=== PATIENT | male | born 1995 | race Caucasian/White ===

== ENCOUNTER 2020-05-12 22:29 | Emergency (ER) | payer OTHER ==
[~2020-05-12] VITALS: Ht 188 cm; Wt 72.6 kg
[2020-05-12 22:30] VITALS: BP_SYST 126
--- NOTE | 2020-05-12 22:30 | NUR ---
Patient to ER bed 2 to gown for evaluation. Side rails up. Report given to CHARLY.
--- NOTE | 2020-05-12 22:35 | NUR ---
PT ALERT BUT INTOXICATED CURRENTLY. PT ARRIVES FROM [facility] ON A 5150 HOLD FOR DTS. PT MADE SUICIDAL STATEMENTS AND REQUIRES MEDICAL CLEARANCE.
--- NOTE | 2020-05-12 22:40 | NUR ---
ER at bedside examining patient.
--- NOTE | 2020-05-12 23:01 | NUR ---
Blood works sent to the lab
[2020-05-12 23:19] LABS: BASOPHILS # (AUTO) 0.1 K/uL (0.0-0.2); BASOPHILS % (AUTO) 1.3 % (0.0-2.0); EOSINOPHILS # (AUTO) 0.2 K/uL (0.0-0.4); EOSINOPHILS % (AUTO) 3.1 % (0.0-4.0); HEMATOCRIT 42.7 % (36-54); LYMPHOCYTES # (AUTO) 2.1 K/uL (1.0-5.5); MEAN CORPUSCULAR HEMOGLOBIN 24 pg (27-31); MEAN CORPUSCULAR HGB CONC 33 % (32-36); MEAN CORPUSCULAR VOLUME 74 fL (79.0-98.0); MONOCYTES # (AUTO) 0.6 K/uL (0.0-1.0); NEUTROPHILS # (AUTO) 3.9 K/uL (1.8-7.7); NEUTROPHILS % (AUTO) 56.6 % (40.0-70.0); PLATELET COUNT (AUTO) 493 K/uL (130-430); RED BLOOD CELL COUNT(AUTO) 5.78 MIL/uL (4.2-6.2); WHITE BLOOD COUNT (AUTO) 6.9 K/uL (4.8-10.8)
[2020-05-12 23:30] LABS: CALCIUM 8.8 mg/dL (8.4-11.0); CREATININE 1.04 mg/dL (0.55-1.30); POTASSIUM 3.4 mmol/L (3.5-5.1)
[2020-05-12 23:46] LABS: ALBUMIN 4.6 g/dL (3.4-4.8); TOTAL BILIRUBIN 0.3 mg/dL (0.0-1.0)
[2020-05-12 23:48] LABS: BILIRUBIN,URINE NEGATIVE (NEGATIVE); BLOOD, URINE NEGATIVE (NEGATIVE); CLARITY/URINE CLEAR (CLEAR); COLOR,URINE YELLOW (YELLOW); GLUCOSE,URINE NEGATIVE (NEGATIVE); KETONES,URINE NEGATIVE (NEGATIVE); LEUKOCYTE ESTERASE ,URINE NEGATIVE (NEGATIVE); NITRITE, URINE NEGATIVE (NEGATIVE); PROTEIN URINE NEGATIVE (NEGATIVE); UROBILINOGEN,URINE 0.2 (0.2-1.0)
--- NOTE | 2020-05-12 23:51 | NUR ---
[facility] facility sitter at bedside help to assisted in obtaining urine sample
[2020-05-12 23:58] LABS: BARBITURATE, URINE NEGATIVE (NEG <=200); BENZODIAZEPINE, URINE POSITIVE (NEG <=150); CANNABINOID, URINE NEGATIVE (NEG <=50); COCAINE, URINE NEGATIVE (NEG <=150); METHAMPHETAMINES SCREEN,URINE NEGATIVE (NEG <=500); OPIATE, URINE NEGATIVE (NEG <=100); PHENCYCLIDINE SCREEN,URINE NEGATIVE (NEG <=25); UR TRICYCLIC ANTIDEPRESSANTS NEGATIVE (NEG <=300); URINE AMPHETAMINE NEGATIVE (NEG <=500); URINE METHADONE NEGATIVE (NEG <=200); URINE OXYCODONE SCREEN NEGATIVE (NEG <=100); URINE PROPOXYPHENE SCREEN NEGATIVE (NEG <=300)
--- NOTE | 2020-05-13 01:00 | NUR ---
With [facility] sitter at bedside, Pt remains in stable condition Banana bag continuous IV infusion
[2020-05-13] MEDS ORDERED: FOLIC ACID 1 MG, THIAMINE HCL 100 MG, MAGNESIUM SULFATE 1 GM, MVI 10 ML in NACL 0.9% 1,... IV ONE (02:00)
--- NOTE | 2020-05-13 02:05 | NUR ---
VSS no s/s of acute distress Resting on gurney rails up
[2020-05-13] MEDS ORDERED: THIAMINE HCL 100 MG/ML VIAL ONE (02:15)
[2020-05-13] MEDS ORDERED: MAGNESIUM SULFATE 1 GM/2 ML VIAL ONE (02:15)
[2020-05-13] MEDS ORDERED: FOLIC ACID 5 MG/ML VIAL IV ONE (02:15)
[2020-05-13] MEDS ORDERED: MVI 10 ML VIAL IV ONE (02:15)
--- NOTE | 2020-05-13 03:19 | NUR ---
IVF ( Banana Bag ) well tolerated. Pt stated I'm feeling better, battery recharger and Dr. Bermudez aware
--- NOTE | 2020-05-13 03:45 | NUR ---
Vic called to inform [facility] arranged to ETA [id number], and Jordyn at [facility] called and received report
--- NOTE | 2020-05-13 04:25 | NUR ---
With Transport bedside, pt DC'd by Dr. Bermudez to go back to [facility]. Report given to Jordyn
[2020-05-13 04:30] VITALS: BP_SYST 122
--- NOTE | 2020-05-13 04:30 | NUR ---
Patient given written and verbal discharge instructions and verbalizes understanding. ER MD discussed with patient the results and treatment provided. Patient in stable condition. ID arm band removed. IV catheter removed intact and dressing applied, no active bleeding. Patient educated on pain management and to follow up with PMD. Pain Scale 0/10 Opportunity for questions provided and answered.
== END 2020-05-13 04:30 ==
LOC: SED 22:29
DX: F10.129 Alcohol abuse with intoxication, unspecified (principal)
CPT/HCPCS: 36415; 80053; 80307; 81003; 85025; 96365; 96366; 99285; G0482; J3411; J3475; J3490